=== PATIENT | female | born 1995 | race Caucasian/White ===

== ENCOUNTER 2023-11-01 09:35 | Emergency (ER) | payer OTHER ==
[~2023-11-01] VITALS: Ht 180.3 cm; Wt 63.0 kg
[2023-11-01 09:39] VITALS: BP 104/71; RESP 18; TEMP 98.1; O2SAT 99
[2023-11-01 09:41] VITALS: PULSE 73
== END 2023-11-01 10:41 | disposition home or self-care (01) ==
LOC: ER 09:35
DX: S51.811D Laceration without foreign body of right forearm, subsequent encounter (principal); Z48.01 Encounter for change or removal of surgical wound dressing; X58.XXXD Exposure to other specified factors, subsequent encounter
CPT/HCPCS: 99281; Z7610

== ENCOUNTER 2023-11-09 15:22 | Emergency (ER) | payer MEDICAID, OTHER ==
[~2023-11-09] VITALS: Ht 182.9 cm; Wt 68.0 kg
[2023-11-09 15:37] VITALS: BP 104/50; PULSE 62; RESP 16; TEMP 98; O2SAT 100
== END 2023-11-09 15:52 | disposition home or self-care (01) ==
LOC: ER 15:22
DX: S51.812D Laceration without foreign body of left forearm, subsequent encounter (principal); X58.XXXD Exposure to other specified factors, subsequent encounter
CPT/HCPCS: 99281